=== PATIENT | female | born 1955 | race Caucasian/White ===

== ENCOUNTER 2021-01-30 18:04 | Observation (INO) | payer OTHER ==
[2021-01-30 18:34] LABS: BASO % 4.8 % (0-2.0); EOS % 1.9 % (0-4.5); HEMATOCRIT 37.4 % (32.4-45.2); HEMOGLOBIN 12.2 GM/dl (10.7-15.3); MCH 32.1 pg (25.7-33.7); MCHC 32.8 g/dl (32.0-36.0); MEAN CELL VOLUME 97.9 fl (80-96); MEAN PLT VOLUME 8.1 fl (7.5-11.1); MONO % 9.2 % (3.8-10.2); NEUT % 56.1 % (42.8-82.8); PLATELET COUNT 254 10^3/uL (134-434); RBC 3.82 M/mm3 (3.60-5.2); RDW 13.4 % (11.6-15.6); WHITE BLOOD COUNT 5.3 K/mm3 (4.0-10.8)
[2021-01-30 18:48] LABS: ALBUMIN 3.9 g/dl (3.4-5.0); BILIRUBIN,TOTAL 0.8 mg/dl (0.2-1); CALCIUM 8.8 mg/dl (8.5-10); CREATININE 0.7 mg/dl (0.55-1.3); TOT PROT 6.4 g/dl (6.4-8.2)
[2021-01-30] MEDS ORDERED: SODIUM CHLORIDE 0.9% 500 ML INFUS.BAG IV ONE (18:53)
[2021-01-31 01:10] VITALS: BMI 23.0
[2021-01-31 08:09] LABS: BASO % 2.7 % (0-2.0); EOS % 3.4 % (0-4.5); HEMATOCRIT 37.8 % (32.4-45.2); HEMOGLOBIN 12.7 GM/dl (10.7-15.3); LYMPH % 33.8 % (8-40); MCH 32.5 pg (25.7-33.7); MCHC 33.5 g/dl (32.0-36.0); MEAN CELL VOLUME 96.8 fl (80-96); MEAN PLT VOLUME 8.1 fl (7.5-11.1); MONO % 9.7 % (3.8-10.2); NEUT % 50.4 % (42.8-82.8); PLATELET COUNT 221 10^3/uL (134-434); WHITE BLOOD COUNT 3.5 K/mm3 (4.0-10.8)
[2021-01-31 08:11] LABS: ANION GAP 10 MMOL/L (8-16); CALCIUM 8.8 mg/dl (8.5-10); CHLORIDE 104 mmol/L (98-107); CO2 26 mmol/L (21-32); CREATININE 0.7 mg/dl (0.55-1.3); GLUCOSE,RANDOM 94 mg/dl (74-106); SODIUM 140 mmol/L (136-145)
[2021-01-31] MEDS: ENOXAPARIN NA (PORCINE) 40 MG/0.4 ML DISP.SYRIN SQ SCH (09:34)
[2021-01-31] MEDS: MULTIVITAMINS (DAILY MVI) TABLET (FP) PO SCH (09:34)
[2021-01-31] MEDS: CHOLECALCIFEROL (VIT D3) 1,000 UNIT (25 MCG) TABLET PO SCH (09:35)
[2021-01-31] MEDS ORDERED: CHOLECALCIFEROL (VIT D3) 5000 UNITS (125 MCG) CAP PO SCH (10:00)
[2021-02-01] MEDS ORDERED: LOCK ITEM NR ONE (02:00)
[2021-02-01 06:39] VITALS: BP 126/57; PULSE 57; TEMP 97.8
[2021-02-01] MEDS ORDERED: REGADENOSON 0.4 MG/5 ML PRE-FILLED SYRINGE IVPUSH ONE ×2 (08:07→12:00)
[2021-02-01] MEDS: CHOLECALCIFEROL (VIT D3) 1,000 UNIT (25 MCG) TABLET PO SCH (17:04)
[2021-02-01] MEDS: MULTIVITAMINS (DAILY MVI) TABLET (FP) PO SCH (17:04)
[2021-02-01] MEDS: ENOXAPARIN NA (PORCINE) 40 MG/0.4 ML DISP.SYRIN SQ SCH (17:05)
== END 2021-02-01 16:33 | disposition home or self-care (01) ==
LOC: FER 18:04 → FM/S 23:17 → UNDOADMOB 23:17 → FM/S 23:45
PROVIDERS: ADMIT Internal Medicine; ATTEND Nurse Practitioner Acute Care
PROC: 3E033GC Introduction of Other Therapeutic Substance into Peripheral Vein, Percutaneous Approach (ICD-10-PCS; principal; 2021-01-30)
PROC: 3E0337Z Introduction of Electrolytic and Water Balance Substance into Peripheral Vein, Percutaneous Approach (ICD-10-PCS; 2021-01-30)
DX: R55 Syncope and collapse (principal); R00.2 Palpitations; Z88.0 Allergy status to penicillin; R68.84 Jaw pain; R42 Dizziness and giddiness; I49.9 Cardiac arrhythmia, unspecified; M81.0 Age-related osteoporosis without current pathological fracture
CPT/HCPCS: 36415; 71045-TC-FY; 78452-TC; 80048; 80053; 81003; 83735; 84443; 84484; 85025; 93005; 93017; 93306-TC; 96361; 96374; 99285-25; A9502; C9803; G0378; J2785; U0003; U0005

== ENCOUNTER 2023-04-23 07:30 | Day surgery (SDC) | payer OTHER ==
[2023-04-21 14:49] VITALS: BMI 20.9
[2023-04-23 07:53] VITALS: RESP 19
[2023-04-23 09:27] VITALS: TEMP 98
[2023-04-23 09:29] VITALS: BP 106/61; PULSE 70
== END 2023-04-23 09:56 | disposition home or self-care (01) ==
LOC: FASU-ENDO 07:30
PROVIDERS: ATTEND Internal Medicine Gastroenterology
PROC: 0DJD8ZZ Inspection of Lower Intestinal Tract, Via Natural or Artificial Opening Endoscopic (ICD-10-PCS; principal; 2023-04-23 08:38)
DX: Z12.11 Encounter for screening for malignant neoplasm of colon (principal); K57.30 Diverticulosis of large intestine without perforation or abscess without bleeding; Z86.010 Personal history of colon polyps

== ENCOUNTER 2023-08-06 11:58 | Day surgery (SDC) | payer OTHER ==
[2023-08-06] MEDS: DENOSUMAB 60 MG/ML DISP.SYRIN SQ ONE (12:21)
[2023-08-06 12:30] VITALS: BP 116/69; PULSE 64; RESP 17; TEMP 97.6
== END 2023-08-06 12:25 | disposition home or self-care (01) ==
LOC: FM/S 11:58 → FINJECTION 11:58
PROVIDERS: ATTEND Internal Medicine Geriatric Medicine
PROC: 3E013GC Introduction of Other Therapeutic Substance into Subcutaneous Tissue, Percutaneous Approach (ICD-10-PCS; principal; 2023-08-06)
DX: M86.9 Osteomyelitis, unspecified (principal)
CPT/HCPCS: 96372; J0897

== ENCOUNTER 2024-02-04 11:54 | Day surgery (SDC) | payer OTHER ==
[2024-02-04 13:23] VITALS: BP 135/62; PULSE 89; RESP 18; TEMP 98.4
[2024-02-04] MEDS: DENOSUMAB 60 MG/ML DISP.SYRIN SQ ONE (13:29)
== END 2024-02-04 13:26 | disposition home or self-care (01) ==
LOC: FINFUSION 11:54 → FM/S 11:56 → FINFUSION 13:26
PROVIDERS: ATTEND Specialist
PROC: 3E013GC Introduction of Other Therapeutic Substance into Subcutaneous Tissue, Percutaneous Approach (ICD-10-PCS; principal; 2024-02-04)
DX: M81.0 Age-related osteoporosis without current pathological fracture (principal)
CPT/HCPCS: 96372; J0897

== ENCOUNTER 2024-08-04 11:44 | Day surgery (SDC) | payer OTHER ==
[2024-08-04] MEDS: DENOSUMAB 60 MG/ML DISP.SYRIN SQ ONE (12:02)
[2024-08-04 12:14] VITALS: BP 127/64; PULSE 76; RESP 17; TEMP 97.9
== END 2024-08-04 12:17 | disposition home or self-care (01) ==
LOC: FINJECTION 11:44 → FM/S 11:46 → FINJECTION 12:17
PROVIDERS: ATTEND Specialist
PROC: 3E013GC Introduction of Other Therapeutic Substance into Subcutaneous Tissue, Percutaneous Approach (ICD-10-PCS; principal; 2024-08-04)
DX: M81.0 Age-related osteoporosis without current pathological fracture (principal)
CPT/HCPCS: 96372; J0897